=== PATIENT | male | born 1985 | race Hispanic/Latino ===

== ENCOUNTER 2019-08-08 17:50 | Emergency (ER) | payer OTHER ==
[~2019-08-08] VITALS: Ht 167.6 cm; Wt 77.1 kg
[2019-08-08] MEDS ORDERED: KETOROLAC TROMETHAMINE 30 MG/ML VIAL IV STA (19:00)
[2019-08-08 20:00] LABS: BASOPHILS # (AUTO) 0.1 (0.0-0.1); BASOPHILS % 0.9 % (0.0-1.0); EOSINOPHILS # (AUTO) 0.1 (0.0-0.4); EOSINOPHILS % 1.8 % (0.0-6.0); HEMATOCRIT 48.1 % (38.2-49.6); HEMOGLOBIN 16.6 g/dL (14.0-18.0); LYMPHOCYTES % 29.5 % (18.0-39.1); MEAN CORPUSCULAR HEMOGLOBIN 30.3 pg (28-32); MEAN CORPUSCULAR HGB CONC 34.5 g/dL (31-35); MEAN CORPUSCULAR VOLUME 87.9 fL (81-99); MONOCYTES # (AUTO) 0.4 (0.2-0.8); MONOCYTES % 6.6 % (4.4-11.3); NEUTROPHILS # (AUTO) 4.1 (2.1-6.9); NEUTROPHILS % 60.9 % (38.7-80.0); PLATELET COUNT 327 x10e3/uL (140-360); RED BLOOD COUNT 5.47 x10e6/uL (4.3-5.7); RED CELL DISTRIBUTION WIDTH 11.9 % (11.7-14.4)
[2019-08-08 20:15] LABS: ALANINE AMINOTRANSFERASE 59 IU/L (0-55); ALBUMIN 3.9 g/dL (3.5-5.0); ALBUMIN/GLOBULIN RATIO 1.1 (0.8-2.0); ALKALINE PHOSPHATASE 94 IU/L (40-150); ANION GAP 9.7 mmol/L (8-16); BLOOD UREA NITROGEN 11 mg/dL (7-26); BUN/CREATININE RATIO 10 (6-25); CARBON DIOXIDE 29 mmol/L (22-29); CHLORIDE 105 mmol/L (98-107); CREATININE, SERUM 1.12 mg/dL (0.72-1.25); EST GLOMERULAR FILTRATION RATE > 60 ML/MIN (60-); GLUCOSE 118 mg/dL (74-118); POTASSIUM 3.7 mmol/L (3.5-5.1); SODIUM 140 mmol/L (136-145)
--- NOTE | 2019-08-08 20:20 | Diagnostic Imaging Report ---
CT Abdomen and Pelvis without contrast INDICATION: Right flank pain, ^renal stone protocol TECHNIQUE: Thin collimation axial images obtained from the diaphragm to the level of the pubic symphysis without nonionic intravenous contrast. Dose reduction techniques used: Automated exposure control, adjustment of the mAs and/or kVp according to patient size, standardized low-dose protocol, and/or iterative reconstruction technique. RADIATION DOSE: Total DLP: 778.12 mGy*cm Estimated effective dose: (DLP x 0.015 x size factor) mSv CTDIvol has been reviewed. It is below the limits set by the Radiation Protocol Committee (RPC). COMPARISON: None. ABDOMEN FINDINGS: Lung Bases: Clear. The visualized portion of the mediastinum is normal. Liver: Steatosis with geographic fat deposition in the right lobe. The right lobe measures 17 cm in length. Gallbladder: Present and appears normal. No ductal dilatation. Pancreas: Normal attenuation without mass. Spleen: Normal size without mass. Adrenal Glands: No evidence for mass. Kidneys: Right: No renal calculus. No cortical mass or hydronephrosis Left: No renal calculus. No cortical mass or hydronephrosis Lymph Nodes: No lymphadenopathy. Aorta: Normal in diameter PELVIS FINDINGS: Bowel: Stomach: Distended with food. Small Bowel: Normal in caliber with normal wall thickness. Large Bowel: Normal in caliber with normal wall thickness. Appendix: Normal. Bladder: Normal. Prostate/seminal vesicles: Unremarkable Ureters: No ureteral dilatation or calculus. Peritoneum/retroperitoneum: No free fluid or fluid collection. Bones: Unremarkable for age. IMPRESSION: 1. No evidence of renal calculus or obstructive uropathy.. 2. Steatosis. Mild hepatomegaly. 3. No evidence for bowel obstruction or inflammation. Normal appendix. Signed by: Dr. Dean Tan MD on 08/08/2019 8:17 PM
[2019-08-08 21:29] LABS: BILIRUBIN,URINE NEGATIVE (NEGATIVE); CLARITY,URINE CLEAR (CLEAR); COLOR,URINE YELLOW (YELLOW); KETONES,URINE NEGATIVE (NEGATIVE); LEUKOCYTE ESTERASE ,URINE NEGATIVE (NEGATIVE); NITRITE,URINE NEGATIVE (NEGATIVE); PROTEIN,URINE DIPSTICK NEGATIVE (NEGATIVE); URINE UROBILINOGEN 0.2 mg/dL (0.2 - 1)
[2019-08-08 22:09] LABS: BACTERIA,URINE FEW /HPF; WBC,URINE (MAN) 0-5 /HPF (0-5)
[2019-08-08 22:10] LABS: EPITHELIAL CELLS,URINE FEW /LPF
== END 2019-08-08 22:48 | disposition home or self-care (01) ==
LOC: ER 17:50
DX: M54.5 Low back pain (principal); R16.0 Hepatomegaly, not elsewhere classified; K76.0 Fatty (change of) liver, not elsewhere classified
CPT/HCPCS: 36415; 74176; 80053; 81001; 83735; 85025

== ENCOUNTER 2020-08-18 13:15 | Emergency (ER) | payer BC, OTHER ==
[~2020-08-18] VITALS: Ht 165.1 cm; Wt 81.4 kg
[2020-08-18] MEDS ORDERED: TAMIFLU6 MG/1 ML PO (13:54)
[2020-08-18] MEDS ORDERED: ACETAMINOPHEN500 MG PO (13:54)
[2020-08-18] MEDS ORDERED: IBUPROFEN IB200 MG PO (13:54)
[2020-08-18] MEDS ORDERED: ONDANSETRON ODT4 MG PO (13:54)
== END 2020-08-18 14:43 | disposition home or self-care (01) ==
LOC: FSED 13:35
DX: J11.1 Influenza due to unidentified influenza virus with other respiratory manifestations (principal); R05 Cough; R11.2 Nausea with vomiting, unspecified
CPT/HCPCS: 83518; 87400; 99283

== ENCOUNTER 2020-11-21 19:36 | Emergency (ER) | payer BC ==
[~2020-11-21] VITALS: Ht 165.1 cm; Wt 82.6 kg
[~2020-11-21 19:36] MED LIST: ACETAMINOPHEN500 MG PO; IBUPROFEN IB200 MG PO; ONDANSETRON ODT4 MG PO; TAMIFLU6 MG/1 ML PO
[2020-11-21] MEDS ORDERED: VENTOLIN HFA18 GM INH (20:13)
[2020-11-21] MEDS ORDERED: AZITHROMYCIN250 MG PO (20:13)
[2020-11-21] MEDS ORDERED: PREDNISONE20 MG PO (20:13)
== END 2020-11-21 20:20 | disposition home or self-care (01) ==
LOC: FSED 19:50
DX: R05 Cough (principal); J40 Bronchitis, not specified as acute or chronic; R42 Dizziness and giddiness
CPT/HCPCS: 71046; 99283

== ENCOUNTER 2022-10-29 02:06 | Emergency (ER) | payer BC, OTHER ==
[~2022-10-29] VITALS: Ht 165.1 cm; Wt 82.6 kg
[~2022-10-29 02:06] MED LIST changes: +AZITHROMYCIN250 MG PO; +PREDNISONE20 MG PO; +VENTOLIN HFA18 GM INH
[2022-10-29 02:11] VITALS: O2SAT 98
[2022-10-29] MEDS ORDERED: AZITHROMYCIN250 MG PO (03:16)
[2022-10-29] MEDS ORDERED: MEDROL4 M2 PO (03:16)
== END 2022-10-29 03:20 | disposition home or self-care (01) ==
LOC: ER 02:13
DX: R05.9 Cough, unspecified (principal); J40 Bronchitis, not specified as acute or chronic; R06.02 Shortness of breath; Z20.822 Contact with and (suspected) exposure to COVID-19
CPT/HCPCS: 71045; 99283; U0002